=== PATIENT | male | born 1950 | race Caucasian/White ===

== ENCOUNTER → 2016-04-26 | Outpatient (CLI) | payer MEDICARE ==
[~2016-04-26] MED LIST: ADVAIR HFA 115-28 GM INH; AMIODARONE HCL200 MG PO; AUGMENTIN TAB875 MG PO; CARTIA XT120 MG PO; CLARITIN10 MG PO; ELAVIL 10 MG TA10 MG PO; FISH OIL 1,0001 EAC3 PO; KLONOPIN TAB 00.5 MG PO; LAMOTRIGINE200 MG PO; LANOXIN125 MCG PO; LASIX TAB 20 MG20 MG PO; LEVOTHYROXINE50 MCG PO; LIPITOR TAB 2020 MG PO; LOPRESSOR 25 MG25 MG PO; LORTAB 5-325 M1 EACH PO; MEDROL DOSEPAK 24 MG PO; MEGACE SUSP40 MG/M1 PO; MEGACE TAB 40 M40 MG PO; NEURONTIN 300300 MG PO; NITROSTAT0.4 MG SL; PLAVIX 75 MG TA75 MG PO; SPIRIVA RESPIMAT4 GM INH; VENTOLIN HFA 66.7 GM INH; WARFARIN SODIU2.5 MG PO; WARFARIN SODIUM5 MG PO
== END ==
LOC: CT 11:30
DX: R51 Headache (principal)
CPT/HCPCS: 70450

== ENCOUNTER → 2016-05-01 | Outpatient (CLI) | payer MEDICARE | LOC: EXRD 08:28 | DX: J90 Pleural effusion, not elsewhere classified (principal); J43.9 Emphysema, unspecified; Z88.8 Allergy status to other drugs, medicaments and biological substances | CPT/HCPCS: 71020 ==

== ENCOUNTER → 2016-05-21 | Outpatient (CLI) | payer MEDICARE | LOC: LAB 14:12 | DX: Z51.81 Encounter for therapeutic drug level monitoring (principal); I48.91 Unspecified atrial fibrillation; Z79.01 Long term (current) use of anticoagulants | CPT/HCPCS: 36415; 85610 ==

== ENCOUNTER → 2016-08-01 | Outpatient (CLI) | payer MEDICARE | LOC: RT 15:35 | DX: R09.02 Hypoxemia (principal) | CPT/HCPCS: 36600; 82803 ==

== ENCOUNTER → 2016-11-05 | Outpatient (CLI) | payer OTHER, MEDICARE ==
[~2016-11-05] MED LIST changes: -ADVAIR HFA 115-28 GM INH; -AMIODARONE HCL200 MG PO; -AUGMENTIN TAB875 MG PO; -CARTIA XT120 MG PO; -ELAVIL 10 MG TA10 MG PO; -FISH OIL 1,0001 EAC3 PO; -KLONOPIN TAB 00.5 MG PO; -LAMOTRIGINE200 MG PO; -LANOXIN125 MCG PO; -LASIX TAB 20 MG20 MG PO; -LEVOTHYROXINE50 MCG PO; -LIPITOR TAB 2020 MG PO; -LOPRESSOR 25 MG25 MG PO; -LORTAB 5-325 M1 EACH PO; -MEDROL DOSEPAK 24 MG PO; -MEGACE SUSP40 MG/M1 PO; -MEGACE TAB 40 M40 MG PO; -NEURONTIN 300300 MG PO; -NITROSTAT0.4 MG SL; -PLAVIX 75 MG TA75 MG PO; -SPIRIVA RESPIMAT4 GM INH; -VENTOLIN HFA 66.7 GM INH; -WARFARIN SODIU2.5 MG PO; -WARFARIN SODIUM5 MG PO
== END ==
LOC: KOH-I 09:17
DX: M25.512 Pain in left shoulder (principal); S53.102 Unspecified subluxation of left ulnohumeral joint
CPT/HCPCS: 73200

== ENCOUNTER → 2016-12-01 | Outpatient (CLI) | payer OTHER, MEDICARE ==
[~2016-12-01] MED LIST changes: +ADVAIR HFA 115-28 GM INH; +AMIODARONE HCL200 MG PO; +AUGMENTIN TAB875 MG PO; +CARTIA XT120 MG PO; +ELAVIL 10 MG TA10 MG PO; +FISH OIL 1,0001 EAC3 PO; +KLONOPIN TAB 00.5 MG PO; +LAMOTRIGINE200 MG PO; +LANOXIN125 MCG PO; +LASIX TAB 20 MG20 MG PO; +LEVOTHYROXINE50 MCG PO; +LIPITOR TAB 2020 MG PO; +LOPRESSOR 25 MG25 MG PO; +LORTAB 5-325 M1 EACH PO; +MEDROL DOSEPAK 24 MG PO; +MEGACE SUSP40 MG/M1 PO; +MEGACE TAB 40 M40 MG PO; +NEURONTIN 300300 MG PO; +NITROSTAT0.4 MG SL; +PLAVIX 75 MG TA75 MG PO; +SPIRIVA RESPIMAT4 GM INH; +VENTOLIN HFA 66.7 GM INH; +WARFARIN SODIU2.5 MG PO; +WARFARIN SODIUM5 MG PO
== END ==
LOC: LAB 12:18
DX: Z51.81 Encounter for therapeutic drug level monitoring (principal); Z79.01 Long term (current) use of anticoagulants
CPT/HCPCS: 85610